=== PATIENT | female | born 1980 | race Caucasian/White ===

== ENCOUNTER 2019-04-07 12:30 | Emergency (ER) | payer BC ==
--- NOTE | 2019-04-07 12:59 | Emergency Department Record ---
History of Present Illness - General Chief complaint: Edema Stated complaint: RESWELLING BOTH LEGS,RT LEG PAIN Time Seen by Provider: 04/07/19 12:36 Source: Patient Mode of Arrival: Ambulatory Limitations: No limitations - History of Present Illness Initial comments: The patient is here due to leg swelling and R thigh pain. The patient has had issues with R thigh pain for months but they have been worse for the last 3 weeks. She also has developed bilateral lower leg swelling over the last few weeks. The pain is worse with walking at times. The patient has been seeing a chiropracter for tailbone pain but denies any back pain, AP, dysuria, fever, leg weakness, numbness or any bowel or bladder issues. The patient also denies any hx of CP, SOB, MARYSE, or dyspnea. She has no hx of similar issues and is on no medicines. MD Complaint: Extremity swelling Onset/Timin -: Week(s) Location: Right, Thigh History of Same: No Severity scale (1-10): 9 Quality: Sharp Consistency: Intermittent Improves with: Cold therapy Worsens with: Nothing Associated Symptoms: Denies other symptoms - Related Data Previous Rx's Medication Instructions Recorded Furosemide [Lasix] 20 mg PO DAILY #7 tablet 04/07/19 Potassium Chloride 10 meq PO DAILY #7 capsule.er 04/07/19 Allergies Allergy/AdvReac Type Severity Reaction Status Date / Time No Known Drug Allergies Allergy Verified 04/07/19 12:37 Travel Screening - Travel/Exposure Within Last 30 Days Have you traveled within the last 30 days?: No - Travel/Exposure Within Last Year Have you traveled outside the [place] in the last year?: No - Additonal Travel Details Have you been exposed to anyone with a communicable illness?: No - Travel Symptoms Symptom Screening: None Review of Systems Constitutional: Denies: Chills, Fever Eyes: Denies: Eye discharge ENT: Denies: Congestion Respiratory: Denies: Cough Cardiovascular: Denies: Arrhythmia, Chest pain Endocrine: Denies: Fatigue Gastrointestinal: Denies: Nausea Genitourinary: Denies: Dysuria Musculoskeletal: Denies: Arthralgia, Back pain Skin: Denies: Bruising Past Medical History - SOCIAL HISTORY Smoking Status: Never smoker Alcohol Use: None Drug Use: None - RESPIRATORY Hx Respiratory Disorders: No - CARDIOVASCULAR Hx Cardio Disorders: No - NEURO Hx Neuro Disorders: Yes Comment:: "black outs" none for 5 months - GI Hx GI Disorders: No - Hx Genitourinary Disorders: No - ENDOCRINE Hx Endocrine Disorders: No Comment:: "Borderline" - MUSCULOSKELETAL Hx Musculoskeletal Disorders: No - PSYCH Hx Psych Problems: No - HEMATOLOGY/ONCOLOGY Hx Hematology/Oncology Disorders: No Family Medical History Any Significant Family History?: Yes Hx Cancer: Father, Mother, Grandparents Hx Diabetes: Grandparents Hx Resp Disorders: Father Physical Exam - General General Appearance: Alert, Oriented x3, Cooperative, No acute distress - Head Head exam: Atraumatic, Normocephalic - Neck Neck exam: Normal inspection, Full ROM. negative: Tenderness - Respiratory Respiratory exam: Normal lung sounds bilaterally. negative: Respiratory distre ss - Cardiovascular Cardiovascular Exam: Regular rate, Normal rhythm, Normal heart sounds - GI/Abdominal GI/Abdominal exam: Soft (Morbidly obese.), Normal bowel sounds. negative: Guarding, Rebound, Rigid, Tenderness - Extremities Extremities exam: Pedal edema (1+ bilaterally and equal.), Other (DP pulses are 2+ and equal bilaterally.). negative: Normal inspection, Calf tenderness, Tenderness (There is no thigh tenderness to palpation and no redness, warmth or signs of trauma.) - Back Back exam: Denies: Normal inspection, CVA tenderness (R), Muscle spasm, Paraspinal tenderness, Vertebral tenderness - Neurological Neurological exam: Alert, Normal gait, Oriented X3. negative: Abnormal gait, Motor sensory deficit - Skin Skin exam: negative: Rash Course Vital Signs 04/07/19 12:38 Temperature 98.5 F Pulse Rate 71 Respiratory 18 Rate Blood Pressure 148/72 Pulse Ox 98 - Reevaluation(s) Reevaluation #1: The patient is doing well at this time. I did discuss the neg xrays, lab work and Doppler with the patient and the need for F/U. We will place the patient on a short course of a diuretic and she is to see a PCP for further evaluation. 04/07/19 15:50 Medical Decision Making - Data Complexity MDM Data: Labs Ordered and/or Reviewed, X-Ray Ordered and/or Reviewed - Lab Data Result diagrams: 04/07/19 13:10 04/07/19 13:10 - Radiology Data Radiology results: Report reviewed (Xray of the femur and leg Doppler are neg for any acute changes and neg for DVT.) Disposition Disposition: Discharge Clinical Impression: Leg edema Disposition: Home, Self-Care Condition: (2) Stable Instructions: Leg Edema (ED) Additional Instructions: Please take the Lasix and potassium as directed and please see a family doctor for recheck next week. Return to the ER for any problems or issues. Prescriptions: Furosemide [Lasix] 20 mg PO DAILY #7 tablet Potassium Chloride 10 meq PO DAILY #7 capsule.er Forms: Patient Portal Access Time of Disposition: 15:53 Quality - Quality Measures Quality Measures: N/A - Blood Pressure Screening View Details: Yes Does Patient Have Any of the Following: No Blood Pressure Classification: Hypertensive Reading Systolic Measurement: 148 Diastolic Measurement: 72 Screening for High Blood Pressure: < First Hypertensive BP, F/U Documented > [G8950] First Hypertensive Follow-up Interventions: Referral to alternative/primary care provider.
[2019-04-07 13:12] LABS: URINE APPEARANCE CLEAR; URINE BILIRUBIN NEGATIVE (NEGATIVE); URINE BLOOD MODERATE (NEGATIVE); URINE COLOR YELLOW; URINE GLUCOSE (UA) NEGATIVE (NEGATIVE); URINE KETONE NEGATIVE (NEGATIVE); URINE LEUKOCYTE ESTERASE MODERATE (NEGATIVE); URINE NITRITE NEGATIVE (NEGATIVE); URINE PROTEIN NEGATIVE (NEGATIVE); URINE UROBILINOGEN 0.2 E.U./dL (0.20 - 1.00)
[2019-04-07 13:15] LABS: ABSOLUTE NEUTROPHIL COUNT 4.55; BASO % 0.3 % (0-6); EOS % 3.1 % (0-6); GRAN % 61.3 % (47-80); HEMATOCRIT 36.4 % (35.0-47.0); HEMOGLOBIN 11.6 gm/dl (11.6-16.0); LYMPH % 27.6 % (16-45); MEAN CELL VOLUME 91.2 fl (81-97); MEAN CORPUSCULAR HEMOGLOBIN 29.1 pg (27-33); MEAN CORPUSCULAR HGB CONC 31.9 g/dl (32-36); MEAN PLATELET VOLUME 10.5 fl (7.4-10.4); MONO % 7.7 % (0-9); PLATELET COUNT 364 K/uL (130-400); RED BLOOD COUNT 3.99 M/uL (3.80-5.40); WHITE BLOOD COUNT W/O DIFF 7.4 K/uL (4.2-12.2)
[2019-04-07 13:21] LABS: URINE RBC 0 - 2 (NONE SEEN)
[2019-04-07 13:22] LABS: URINE BACTERIA FEW
[2019-04-07 13:25] LABS: BLOOD UREA NITROGEN 13 mg/dL (6-20); CREATININE 0.5 mg/dL (0.5-0.9); EST GLOMERULAR FILTRATION RATE > 60 mL/min
[2019-04-07 13:26] LABS: HCG,QUALITATIVE URINE NEGATIVE (NEGATIVE)
[2019-04-07 13:26] LABS: TOTAL PROTEIN 7.1 g/dL (6.6-8.7)
[2019-04-07 13:28] LABS: GLUCOSE,RANDOM 92 mg/dL (74-109)
[2019-04-07 13:30] LABS: ALT/SGPT 11 U/L (<33)
[2019-04-07 13:31] LABS: ALB/GLOB RATIO 1.6 (1.1-1.8); ALBUMIN 4.4 g/dL (4.0-5.0); ALKALINE PHOSPHATASE 60 U/L (35-104); AST/SGOT 13 U/L (10.0-35.0)
[2019-04-07] MEDS ORDERED: KETOROLAC 30 MG/ML VIAL IVP ONE (13:36)
--- NOTE | 2019-04-08 13:21 | RADIOLOGY REPORT ---
EXAM: RIGHT FEMUR HISTORY: INJURY. TECHNIQUE: Two views of the right femur were performed. FINDINGS: There is degenerative change of the right hip joint with hypertrophic spurring of the femoral head. No displaced fracture deformity is appreciated. IMPRESSION: NO DISPLACED FRACTURE DEFORMITY IS APPRECIATED. THERE IS HYPERTROPHIC SPURRING OF THE FEMORAL HEAD. JOB NUMBER: [id number] MTDD
--- NOTE | 2019-04-08 13:25 | US VENOUS DOPPLER REPORT ---
EXAM: RIGHT LOWER EXTREMITY VENOUS DOPPLER ULTRASOUND HISTORY: RIGHT LOWER EXTREMITY PAIN. TECHNIQUE: Sonographic evaluation of the deep venous system of the right lower extremity was performed with addition of Doppler, compression and augmentation. FINDINGS: There is normal flow, compression, and augmentation identified in the deep venous system of the right lower extremity. No evidence of deep vein thrombosis. IMPRESSION: NEGATIVE FOR DEEP VEIN THROMBOSIS IN THE RIGHT LOWER EXTREMITY. JOB NUMBER: [id number] MTDD
== END 2019-04-07 16:00 | disposition home or self-care (01) ==
LOC: ER 12:30
DX: R60.0 Localized edema (principal); M79.651 Pain in right thigh
CPT/HCPCS: 99284 ×2; 96374; 85025; 80053; 81001; 81025; 85379; 73552; 93971; J1885